=== PATIENT | female | born 1995 | race Caucasian/White ===

== ENCOUNTER 2017-11-10 16:49 | Emergency (ER) | payer BC ==
[2017-11-10 19:03] VITALS: BP 129/73
[2017-11-10] MEDS ORDERED: Cephalexin CAP* 500 MG PO ONE (19:37)
--- NOTE | 2017-11-10 19:37 | UC ---
Skin Complaint HPI - HPI Summary HPI Summary: Patient states that 3 days ago she was stung by a large wasp on the back of her right lower leg. She states that she itched the site and now the area has more redness and is very hot. She states that she had cellulitis once and this feels the same. She denies any associated fever or chills or history of MRSA. - History of Current Complaint Chief Complaint: [facility] Time Seen by Provider: 11/10/17 19:31 Stated Complaint: RIGHT LEG COMPLAINT Hx Obtained From: Patient ?: No Onset/Duration: Gradual Onset Timing: Constant Pain Intensity: 0 Alleviating Factor(s): Nothing Associated Signs & Symptoms: Positive: Rash - Allergy/Home Medications Allergies/Adverse Reactions: Allergies Allergy/AdvReac Type Severity Reaction Status Date / Time No Known Allergies Allergy Verified 11/10/17 18:56 Review of Systems Constitutional: Negative Skin: Rash Eyes: Negative ENT: Negative Respiratory: Negative Cardiovascular: Negative Gastrointestinal: Negative Genitourinary: Negative Motor: Negative Neurovascular: Negative Musculoskeletal: Negative Neurological: Negative Psychological: Negative Is Patient Immunocompromised?: No All Other Systems Reviewed And Are Negative: Yes PMH/Surg Hx/FS Hx/Imm Hx - Additional Past Medical History Additional PMH: Cellulitis - Surgical History Surgical History: Yes Surgery Procedure, Year, and Place: sx repair left ankle fx - Family History Known Family History: Positive: None - Social History Occupation: Student Lives: Dormitory/Roommates Alcohol Use: None Substance Use Type: None Smoking Status (MU): Never Smoked Tobacco - Immunization History Hx Tetanus, Diphtheria Vaccination: Yes Vaccination Up to Date: Yes Physical Exam Triage Information Reviewed: Yes Appearance: Well-Appearing Vital Signs: Initial Vital Signs Temp 98.3 F 11/10/17 18:57 Pulse 74 11/10/17 18:57 Resp 18 11/10/17 18:57 BP 129/73 11/10/17 18:57 Pulse Ox 100 11/10/17 18:57 Vital Signs Reviewed: Yes Eyes: Positive: Conjunctiva Clear ENT: Positive: Pharynx normal. Negative: Nasal congestion, Nasal drainage Neck: Positive: Supple, Nontender Respiratory: Positive: Lungs clear, Normal breath sounds, No respiratory distress Cardiovascular: Positive: RRR, No Murmur Abdomen Description: Positive: Nontender, No Organomegaly, Soft Bowel Sounds: Positive: Present Musculoskeletal: Positive: ROM Intact Neurological: Positive: Alert Psychological: Positive: Age Appropriate Behavior Skin Exam: Normal Skin: Positive: rashes - Patient has an irregular area of erythema on the backside of her right lower leg. The center of this area is oriented from itching. There is no drainage or streaking. The leg has full sensorivascular motor function. Course/Dx - Differential Diagnoses - Skin Complaint Differential Diagnoses: Cellulitis, Local Allergic Reaction - Diagnoses Provider Diagnoses: Infected sting right lower extremity Discharge - Sign-Out/Discharge Documenting (check all that apply): Patient Departure All imaging exams completed and their final reports reviewed: No Studies - Discharge Plan Condition: Stable Disposition: HOME Prescriptions: Cephalexin CAP* [Keflex CAP*] 500 mg PO TID 10 Days #30 cap Patient Education Materials: Cellulitis (DC), Insect Bite or Sting (ED) Referrals: [facility] [Outside] - 2 Days - Billing Disposition and Condition Condition: STABLE Disposition: Home
== END 2017-11-10 19:46 | disposition home or self-care (01) ==
LOC: UCCORT 16:49
DX: T63.461A Toxic effect of venom of wasps, accidental (unintentional), initial encounter (principal); Y92.9 Unspecified place or not applicable; L08.9 Local infection of the skin and subcutaneous tissue, unspecified
CPT/HCPCS: 99202; A9270-GY; G0463